=== PATIENT | male | born 1955 | race Caucasian/White ===

== ENCOUNTER 2017-01-21 10:11 | Emergency (ER) | payer OTHER ==
[~2017-01-21] VITALS: Ht 162.6 cm; Wt 80.0 kg
[2017-01-21 10:14] VITALS: Ht 162.6 cm; Wt 80.0 kg
--- NOTE | 2017-01-21 10:44 | ERD ---
ER Documentation Chief Complaint Date/Time DATE: 01/21/17 TIME: 10:39 Chief Complaint RIGHT FOOT INJURY LAST FRIDAY, REDNESS STARTED FRIDAY HPI Patient is a 41-year-old male who presents to the emergency department for concerns of right foot pain 5 days. Patient states that he was to get out of his truck when he stepped on a rock and twisted his right ankle. Patient states initially the pain was mild however has persisted worsen. Patient also states 2 days ago he developed redness and swelling to the anterior portion of his foot. Patient states his current pain level is a 4 out of 10 and is worse when walking. At rest patient reports minimal pain. Patient does report walking throughout the past few days, which he feels may have worsened the pain. Patient denies any previous injuries to the affected extremity. Patient denies taking any medication. Patient denies any pain, tibia/fibula pain, fevers, chills, nausea, vomiting, back pain or LOC. ROS All systems reviewed and are negative except as per history of present illness. Medications Home Meds Active Scripts Ibuprofen* (Motrin*) 600 Mg Tab, 600 MG PO Q6, #30 TAB Prov:ROWAN JAVIER PA-C 01/21/17 Allergies Allergies: Coded Allergies: No Known Allergy (Unverified , 01/21/17) Physical Exam Vitals Vital Signs Date Time Temp Pulse Resp B/P Pulse Ox O2 Delivery O2 Flow Rate FiO2 01/21/17 10:14 98.1 89 18 159/78 99 Physical Exam GENERAL: Well-developed, well-nourished male. Appears in no acute distress. HEAD: Normocephalic, atraumatic. EYES: Pupils are equally reactive bilaterally. EOMs grossly intact. No conjunctival erythema. ENT: Moist mucous membranes. No uvula deviation. No kissing tonsils. NECK: Supple. No meningismus. Normal range of motion of the neck. LUNG: Clear to auscultation bilaterally. No rhonchi, wheezing, rales or coarse breath sounds. HEART: Regular rate and rhythm. No murmurs, rubs or gallops. EXTREMITIES: Equal pulses bilaterally. No peripheral clubbing, cyanosis or edema. No unilateral leg swelling. NEUROLOGIC: Alert and oriented. Moving all four extremities without any difficulty. Normal speech. Steady gait. SKIN: Normal color. Warm and dry. RIGHT LE: No obvious deformity. Significant ecchymosis and swelling noted to the dorsal aspect of the foot. Skin intact. Normal range of motion of the knee and ankle. Normal range of motion of all toes. Tender to palpation of the anterior and lateral foot. Nontender palpation of the tibia/fibula, knee. Sensation intact to light touch. Neurovascularly intact. (Able to plantarflex, dorsiflex, new foot, invert foot, raise big toe.) 2+ DP and DT pulses. Results 24 hrs Current Medications Medications (Trade) Dose Ordered Sig/Kushal Route PRN Reason Start Time Stop Time Status Last Admin Dose Admin Ibuprofen (Motrin) 600 mg ONCE ONCE PO 01/21/17 11:00 01/21/17 11:01 DC 01/21/17 11:12 Procedures/MDM ED COURSE: The patient was stable throughout ED course. I kept the patient and/or family informed of laboratory and diagnostic imaging results throughout the ED course. DIAGNOSTIC IMAGING: Read by radiologist. DIAGNOSTIC IMAGING REPORT Patient: TRAM MORA : 1955 Age: 61 Sex: M MR #: [id number] DOS: 01/21/17 1049 Ordering MD: ROWAN JAVIER PA-C Location: [facility] Room/Bed: PROCEDURE: XR Right Ankle 3 Views. CLINICAL INDICATION: Right ankle pain and trauma. TECHNIQUE: AP, oblique and lateral views of the right ankle was performed. COMPARISON: None. FINDINGS: The osseous structures are intact. No destructive bony lesions are observed. Interosseous spaces appear normal. Small Achilles insertion heel spur is seen. Mild soft tissue swelling is seen over the lateral malleolus and anterior ankle. IMPRESSION: Mild soft tissue swelling over the lateral malleolus and anterior ankle. Ligamentous and tendinous injury is not excluded. If characterization of the ligaments and tendons is needed MRI is recommended. Small Achilles insertion heel spur. If there is high clinical suspicion for bony traumatic injury, further evaluation with CT should be considered. . RPTAT: AA .Tal Robles MD, Date Time Electronically viewed and signed by .Tal Robles MDMD on 01/21/2017 11:20 .P/ CC: ROWAN JAVIER PA-C Patient: TRAM MORA : 1955 Age: 61 Sex: M MR #: [id number] DOS: 01/21/17 1049 Ordering MD: ROWAN JAVIER PA-C Location: [facility] Room/Bed: PROCEDURE: XR Foot 3 Views. CLINICAL INDICATION: Right foot pain and trauma. TECHNIQUE: AP, oblique and lateral views of the right foot were obtained. The images were reviewed on a PACS workstation. COMPARISON: None. FINDINGS: The osseous structures are intact. No destructive bony lesions are identified. Interosseous spaces are normal. Soft tissues surrounding the foot appear unremarkable. IMPRESSION: No visualized traumatic injury. If there is high clinical suspicion for traumatic injury, further evaluation with CT should be considered. RPTAT: AA .Tal Robles MD, MD Date Time Electronically viewed and signed by .Tal Robles MD, MD on 01/21/2017 11:21 .P/ CC: ROWAN JAVIER PA-C SPLINT APPLICATION: The patient was verbally consented at bedside prior to splint application. Patient was explained the risks, benefits and alternatives to this procedure. The patient was neurovascularly intact prior to and status post application of the splint. The patient tolerated the procedure well with no complications. Splint type: MIGUELANGEL wrap Extremity: right ankle/ foot Indication: ankle sprain, unable to rule out any ligament or tendon injuries at this time. MEDICATIONS GIVEN: Ibuprofen Patient tolerated medication well with no adverse reactions. Patient reported improvement in pain. MEDICAL DECISION MAKING: This is a 61-year-old male who presents to the ED with right foot and ankle pain 5 days. Patient states he did twist his ankle upon getting out of his truck. Vital signs were reviewed. Patient was afebrile. Imaging of ankle showed Mild soft tissue swelling over the lateral malleolus and anterior ankle. Ligamentous and tendinous injury is not excluded. If characterization of the ligaments and tendons is needed MRI is recommended. Small Achilles insertion heel spur. Imaging of foot showed No visualized traumatic injury. Given these findings, the patients presentation is most consistent with right foot and ankle sprain. I have a much lower clinical concern for ankle dislocation, tibia fracture, fibula fracture, ankle fracture, tarsal bone fracture, metatarsal fracture, phalangeal fracture, stress fracture, gout, septic joint, reactive arthritis, psoriatic arthritis, DVT, compartment syndrome , plantar fasciitis. At this time, unable to rule out any tendon and ligament injuries. Patient was advised to follow-up with an analytics specialist and/ or primary care physician for MRI and an outpatient basis. Referral information provided. PRESCRIPTIONS: Ibuprofen DISCHARGE: At this time, patient is stable for discharge and outpatient management. RICE therapy and ROM exercises were advised to avoid stiffness. I have instructed the patient to follow-up with his/her primary care physician in 1-2 days. I have discussed with the patient the possibility of needing to see an analytics specialist for further workup and imaging if the pain persists. I have instructed the patient to promptly return to the ER for any new or worsening symptoms including increased pain, swelling, redness, warmth or fever. The patient and/or family expressed understanding of and agreement with this plan. All questions were answered. Home care instructions were provided. Patient's blood pressure was elevated (>120/80) but appears stable without evidence of hypertensive emergency, hypertensive urgency or end-organ failure. I had discussion with the patient about the risks of hypertension. I have advised the patient to follow up with his/her primary care physician for outpatient monitoring and treatment for hypertension in 2-3 days. I have instructed the patient to return to the ER for any new or worsening symptoms including chest pain, shortness of breath, headache, blurred vision, confusion, nausea, vomiting or LOC. Departure Diagnosis: Primary Impression: Injury of foot Encounter type: initial encounter Laterality: right Qualified Code: S99.921A - Injury of foot, right, initial encounter Additional Impression: Ankle sprain Encounter type: initial encounter Involved ligament of ankle: unspecified ligament Laterality: right Qualified Code: S93.401A - Sprain of right ankle , unspecified ligament, initial encounter Condition: Stable Referrals: [facility] YOU HAVE RECEIVED A MEDICAL SCREENING EXAM AND THE RESULTS INDICATE THAT YOU DO NOT HAVE A CONDITION THAT REQUIRES URGENT TREATMENT IN THE EMERGENCY DEPARTMENT. FURTHER EVALUATION AND TREATMENT OF YOUR CONDITION CAN WAIT UNTIL YOU ARE SEEN IN YOUR DOCTORS OFFICE WITHIN THE NEXT 1-2 DAYS. IT IS YOUR RESPONSIBILITY TO MAKE AN APPOINTMENT FOR FOLOW-UP CARE. IF YOU HAVE A PRIMARY DOCTOR --you should call your primary doctor and schedule an appointment IF YOU DO NOT HAVE A PRIMARY DOCTOR YOU CAN CALL OUR PHYSICIAN REFERRAL HOTLINE AT IF YOU CAN NOT AFFORD TO SEE A PHYSICIAN YOU CAN CHOSE FROM THE FOLLOWING [facility] [address]. [facility] [address] [facility] [address] [facility] [facility] [address] [facility]. [facility] [address] [facility] [facility] [address] [facility]. [facility] YOU HAVE RECEIVED A MEDICAL SCREENING EXAM AND THE RESULTS INDICATE THAT YOU DO NOT HAVE A CONDITION THAT REQUIRES URGENT TREATMENT IN THE EMERGENCY DEPARTMENT. FURTHER EVALUATION AND TREATMENT OF YOUR CONDITION CAN WAIT UNTIL YOU ARE SEEN IN YOUR DOCTORS OFFICE WITHIN THE NEXT 1-2 DAYS. IT IS YOUR RESPONSIBILITY TO MAKE AN APPOINTMENT FOR FOLOW-UP CARE. IF YOU HAVE A PRIMARY DOCTOR --you should call your primary doctor and schedule and appointment IF YOU DO NOT HAVE A PRIMARY DOCTOR YOU CAN CALL OUR PHYSICIAN REFERRAL HOTLINE AT . IF YOU CAN NOT AFFORD TO SEE A PHYSICIAN YOU CAN CHOSE FROM THE FOLLOWING [facility] INSTITUTIONS: [facility] [address] [place] [address] [facility] [address] [place] [address] [facility] + [facility] [address] [place] [address] [facility] Hours: Mon-Fri 9:00 AM - 5:00 PM Additional Instructions: Call your primary care doctor TOMORROW for an appointment during the next 1-2 days.See the doctor sooner or return here if your condition worsens before your appointment time. Unable to rule out any ligament or tendon injuries at this time. Patient will need to follow-up with the analytics specialist for further management of his injury. ROWAN JAVIER PA-C Jan 21, 2017 10:44
[2017-01-21] MEDS ORDERED: IBUPROFEN 600 MG TAB PO ONE (11:00)
--- NOTE | 2017-01-21 11:21 | RADRPT ---
PROCEDURE: XR Right Ankle 3 Views. CLINICAL INDICATION: Right ankle pain and trauma. TECHNIQUE: AP, oblique and lateral views of the right ankle was performed. COMPARISON: None. FINDINGS: The osseous structures are intact. No destructive bony lesions are observed. Interosseous spaces a ppear normal. Small Achilles insertion heel spur is seen. Mild soft tissue swelling is seen over the lateral malleolus and anterior ankle. IMPRESSION: Mild soft tissue swelling over the lateral malleolus and anterior ankle. Ligamentous and tendinous i njury is not excluded. If characterization of the ligaments and tendons is needed MRI is recommende d. Small Achilles insertion heel spur. If there is high clinical suspicion for bony traumatic injury, further evaluation with CT should be considered. . RPTAT: AA .Tal Robles MD, Date Time Electronically viewed and signed by .Tal Robles MD, on 01/21/2017 11:20 .P/
--- NOTE | 2017-01-21 11:21 | RADRPT ---
PROCEDURE: XR Foot 3 Views. CLINICAL INDICATION: Right foot pain and trauma. TECHNIQUE: AP, oblique and lateral views of the right foot were obtained. The images were reviewe d on a PACS workstation. COMPARISON: None. FINDINGS: The osseous structures are intact. No destructive bony lesions are identified. Interosseous spaces are normal. Soft tissues surrounding the foot appear unremarkable. IMPRESSION: No visualized traumatic injury. If there is high clinical suspicion for traumatic injury, further evaluation with CT should be consi dered. RPTAT: AA .Tal Robles MD, MD Date Time Electronically viewed and signed by .Tal Robles MD, on 01/21/2017 11:21 .P/
[2017-01-21] MEDS ORDERED: IBUP-1542 PO (11:34)
== END 2017-01-21 11:51 | disposition home or self-care (01) ==
LOC: FTE 10:11
DX: S99.921A Unspecified injury of right foot, initial encounter (principal); S93.401A Sprain of unspecified ligament of right ankle, initial encounter; X50.9XXA Other and unspecified overexertion or strenuous movements or postures, initial encounter; Y92.9 Unspecified place or not applicable
CPT/HCPCS: 73610; 73630; Z7502; Z7610